=== PATIENT | female | born 1950 | race Caucasian/White ===

== ENCOUNTER → 2018-01-23 15:43 | Outpatient (CLI) | payer MEDICARE, BC, SELFPAY ==
--- NOTE | 2018-01-23 13:40 | EMB_PTH ---
PATIENT: ROMAN VALENZUELA LOC: [facility] U#:[id number] AGE/SX: 75/F ROOM: RE01/23/[address]: Dr. Raza Wynn MD : 1950 BED: DIS: SPEC #: [id number] RECD: 01/23/18 15:35 STATUS: ENRICO YARED #: [id number] SHANNAN: 01/23/18 13:[address]: Raza Wynn DEPT: SURGICAL PATHOLOGY RECD BY: Chester Borges ENTERED: 01/24/18 07:49 SP TYPE: ENDOM BX/C MAT DR: No Primary Care Phys Tissues: Endometrium, NOS Procedures: Surgery Specimen Level IV HEADER OPERATION: Endometrial biopsy PRE-OP DIAGNOSIS: Postmenopausal bleeding TISSUE SUBMITTED: Endometrial biopsy MICROSCOPIC DIAGNOSIS Endometrial biopsy: Focal simple cystic hyperplasia without atypia. SJ:parker 01/25/18 MICROSCOPIC DESCRIPTION Slides are reviewed. GROSS DESCRIPTION Received in fixative is one container labeled with the patient's name and designated EM biopsy. The specimen consists of multiple fragments of hemorrhagic soft tissue that in aggregate measure 2.5 x 2.5 x 0.1 cm. The specimen is totally submitted in one cassette. / SJ:parker 01/24/18 TC:5 CPT: 27824
[2018-01-28 14:09] LABS: HPV Reflexed? NOT INDICATED
== END ==
PROVIDERS: Visit Provider Obstetrics & Gynecology
DX: Z12.4 Encounter for screening for malignant neoplasm of cervix (principal); N95.0 Postmenopausal bleeding
CPT/HCPCS: 88175; 88305; G0145

== ENCOUNTER 2018-06-03 05:36 | Day surgery (SDC) | payer MEDICARE, BC, SELFPAY ==
[2018-05-29 09:51] LABS: Hematocrit 45.2 % (37-47); Hemoglobin 14.2 g/dl (12.0-15.0); Mean Corp Hgb Conc 31.4 g/gl (32-36); Mean Corpuscular Hgb 28.5 pg (27.0-32.0); Mean Corpuscular Volume 90.8 fL (81-99); Mean Platelet Vol. 10.6 fl (6.2-12.0); Platelet Count 300 K/mm3 (150-450); RBC Distribution Width CV 15.3 % (11.6-14.6); Red Blood Count 4.98 M/mm3 (4.2-5.4); White Blood Count 4.1 K/mm3 (4.4-11.0)
[2018-05-29 09:55] LABS: Prothrombin Time (Protime)PT. 12.7 SECONDS (11.7-14.9)
[2018-05-29 09:56] LABS: Partial Thromboplast Time 28.3 Seconds (24.1-36.2); Scan Indicated on CBC? Y/N NO
[2018-05-29 10:09] LABS: ALB/GLOB Ratio 0.9 RATIO (0.9-2.4); AST(SGOT) 20 U/L (15-37); Alanine Aminotransfer ALT/SGPT 22 U/L (13-56); Albumin, Serum 3.6 g/dL (3.2-5.0); Alkaline Phosphatase 86 U/L (45-117); Anion Gap 8 (5-15); BUN 16 mg/dL (7-18); BUN/Creat Ratio 22.1 RATIO (10-20); Calcium,Total 8.8 mg/dL (8.5-10.1); Chloride 106 mmol/L (98-107); Creatinine, Serum 0.72 mg/dL (0.55-1.02); EST Glomerular Filtration Rate 86 mL/min (>60); Est Glom Filt Rate - Afr Amer 104 mL/min (>60); Globulin 3.9 g/dL (2.2-4.2); Glucose 86 mg/dL (74-106); Potassium 3.8 mmol/L (3.5-5.1); Protein, Total 7.5 g/dL (6.4-8.2); Sodium Level 142 mmol/L (136-145)
--- NOTE | 2018-06-02 15:54 | PCM.HP.BLA ---
History and Physical Date of Admission: 06/03/18 Surgical History and Physical Jennifer Sanchez, a 68 year old female 2 0 0 0 2, presents for [facility] on June 03, 2018 at 7:30. -- CASUALTY CLAIM ADJUSTER Bleeding; Simple EM Hyperplasia -- Postmenopausal bleeding which began November 2017. Jennifer claims it started sudden and has been present 1-2 months. It occurs no bleeding x1mo. It is located in the vagina.Jennifer characterizes the quality mild cramping. Severity is Subsided; Associated signs and symptoms are patient states that she lifts at work. Additional comments are: No vag bleeding noted for the past mo. EMBx shows simple EM hyperplasia. MEDICATIONS HISTORY: ALLERGIES: Bactrim, Rash Infections - Chicken pox Illnesses - none Accidents - None Hospitalizations - Childbirth and see surgery last pap unsure; Review of Systems: GENERAL - Denies fever, or chills SKIN - Denies skin changes EYES - Denies visual changes EARS - Denies difficulty hearing NOSE - Denies nasal congestion or bleeding MOUTH - Denies sore throat or difficulty swallowing NECK - Denies pain or swelling RESPIRATORY - Denies shortness of breath or wheezing CARDIOVASCULAR - Denies palpitations or chest pain GASTROINTESTINAL - Denies nausea, vomiting, diarrhea, constipation GENITOURINARY - Denies dysuria, frequency of urination, incontinence of urine MUSCULOSKELETAL - Denies joint or muscle pain NEUROLOGICAL - Denies localized numbness or weakness PSYCHIATRIC - Denies depression or anxiety ENDOCRINE - Denies heat or cold intolerance, weight loss or gain HEMATO-IMMUNOLOGIC - Denies excesive bleeding with cuts SOCIAL HISTORY: Alcohol Use - RARELY Smoking - denies smoking Diet - no special diet Lifestyle - Exercise - active Seat Belt Use - always Employer - [employer] Illicit Drug Use - denies use of street drugs Sexual Activity - Residence - owns Spouse-Sig Other Name - Shoaib Spouse-Sig Other Occupation - Taxi Control - postmenopausal FAMILY HISTORY: NC MENSTRUAL HISTORY: LMP Known?- Postmenopausal PAST PREGNANCIES: Total Pregnancies - 2; Full Term Pregnancies - 2; Premature - 0; Abortions, Induced - 0; Abortions, Spontaneous - 0; Ectopics - 0; Multiple Births - 0; Living Children - 2 SURGICAL HISTORY: 1. none PHYSICAL EXAM BP- 140/82 Sitting, Right arm, regular cuff Weight- 177.25077 lbs Height- 62.5 inch BMI:31.92 CONSTITUTIONAL - NAD, well nourished, and well developed SKIN - No rash, lesions, or ulcers HEENT - Normocephalic, PERRLA, EOMI NECK - No nodes, no nuchal rigidity and thyroid normal size and texture LYMPH NODES - Palpation of lymph nodes in neck and groins within normal limits LUNGS - CTA x2 without wheezes, crackles or rales CARDIAC - Regular rate and rhythm without rubs, murmurs, or gallops BREAST - No dominant masses, no tenderness, no axillary adenopathy, no nipple discharge, no skin changes ABDOMEN - Without hepatosplenomegaly, distention, masses, rebound, or guarding; normal bowel sounds; no hernias EXTREMITIES - No edema or calf tenderness NEUROLOGICAL - Cranial nerves II-XII grossly intact PSYCHIATRIC - A and O to time, place, person, mood and affect External Genitial Vagina - non-tender without lesions Urethra/Urethral Meatus - non-tender Bladder - non-tender Vagina - vaginal bhatti are pink and moist without loss of rugae and no evidence of atropy Cervix - without cervical motion tenderness and has normal size and features without evident lesions Uterus - multiparous size 6 cm & wt 75-125 g Adnexa - clear without massess or tenderness ASSESSMENT/PLAN: 1. Postmenopausal Bleeding and Simple Endometrial Hyperplasia Without Atypia Reviewed EMBx and treatment options. 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 Pt desires surgery. Discussed RBAs and all questions answered.
[2018-06-03] VITALS (14 sets, daily range): BP systolic 87–129; BP diastolic 41–67; PULSE 47–86; RESP 14–18; TEMP 36.4–37.3; O2SAT 93–97; BMI 28.3; BMI 28.2
--- NOTE | 2018-06-03 07:30 | HYST_PTH ---
PATIENT: ROMAN VALENZUELA LOC: [facility] U#:[id number] AGE/SX: 68/F ROOM: RE06/03/[address]: Dr. Raza Wynn MD : 1950 BED: DIS: 06/04/2018 SPEC #: [id number] RECD: 06/03/18 14:50 STATUS: ENRICO YARED #: [id number] SHANNAN: 06/03/18 07:[address]: Raza Wynn DEPT: SURGICAL PATHOLOGY RECD BY: Chester Borges ENTERED: 06/04/18 04:32 SP TYPE: HYSTERECT OTHR DR: Dr. Dillan Hall DO Tissues: Uterus, NOS Procedures: Surgery Specimen Level V HEADER OPERATION: Hysterectomy, lap assisted vaginal, BSO PRE-OP DIAGNOSIS: Postmenopausal bleeding, simple endometrial hyperplasia without atypia TISSUE SUBMITTED: Uterus, bilateral ovaries and fallopian tubes MICROSCOPIC DIAGNOSIS Uterus, bilateral ovaries and fallopian tubes, vaginal hysterectomy and bilateral salpingo-oophorectomy: Cervix - no pathologic diagnosis. Endometrium ? focal simple hyperplasia without atypia. Endometrial polyp ? simple cystic hyperplasia without atypia. Myometrium - no pathologic diagnosis. Bilateral fallopian tubes - no pathologic diagnosis. Right ovary ? mesothelial inclusion cyst with focal calcification. Left ovary ? simple serous cyst (1.5 cm in greatest dimension). SJ:rg 06/04/18 COMMENT Please make reference to previous specimen ([id number]) focal simple cystic hyperplasia without atypia. MICROSCOPIC DESCRIPTION Slides are reviewed. GROSS DESCRIPTION Received in fixative is one container labeled with the patient's name and designated uterus, bilateral ovaries and bilateral fallopian tubes. The specimen consists of a hysterectomy specimen consisting of uterus, bilateral ovaries and fallopian tubes. The uterus with cervix weighs 85 gm and measures 10 x 6 x 4.5 cm. The serosal surface is naqvi, glistening. The ectocervical mucosa is focally eroded. The endocervical canal measures 3 cm in length and the endocervical mucosa is naqvi, glistening without any mass lesion. The saucer-shaped endometrial cavity measures 6 cm in length and up to 4.5 cm in width. The endometrial tissue reveals a polypoid, pink, congested mass in the anterior uterine wall close to the fundus measuring 6.5 x 4 x 3.5 cm. The myometrial wall underneath the polyp is not indurated. Sections of the polyp reveal naqvi-pink cut surfaces. The rest of the endometrium is naqvi, glistening and measures <0.1 cm in thickness. Sections of the uterine wall do not reveal any mass lesion. The uterine wall measures up to 1 cm in thickness. The right fallopian tube measures 6 cm in length and up to 0.6 cm in diameter. The fimbrial end is identified. No tubo-ovarian adhesions are noted. The right ovary measures 2.5 x 1.5 x 1 cm. Sections of fallopian tube and ovary do not reveal any mass lesion. The left fallopian tube is similar appearance to right and measures 6 cm in length and 0.5 cm in diameter. The left ovary measures 4 x 1 x 1 cm. Sections of the left ovary reveal a cyst filled with clear fluid measuring 1.5 cm in greatest dimension. The cyst wall is smooth without any papillation. Appian Developer sections are submitted in 15 cassettes as follows: 1 - anterior cervix, 2 - posterior cervix, 3-8 ? endometrial polyp (3 & 4 contain the polyp with underlying uterine wall, 9 & 10 ? anterior uterine wall, 11 & 12 - posterior uterine wall, 13 ? right fallopian tube and ovary, 14 ? left fallopian tube and ovary, 15 ? cyst, left ovary. / KIRK:parker 06/03/18 TC:5 CPT: 42721
--- NOTE | 2018-06-03 07:46 | OP.PCM_ITS ---
Operative Report Date of Procedure: 06/03/18 Surgeon: Raza Wynn MD, FACOG Professor Of Exercise Science: MAJO Mahoney Anesthesia: Addis Jones CRNA, Zander Valle MD Type of anesthesia: General endotracheal Procedure: Laparoscopic-Assisted Vaginal Hysterectomy and Bilateral Salpingoophrectomy Findings: 8-10 cm uterus with normal-appearing fallopian tubes and ovaries. Normal pelvis. Preoperative diagnosis: Simple Endometrial Hyperplasia Postoperative diagnosis: Simple Endometrial Hyperplasia Indications: This is a 68-year-old who is been having problems with postmenopausal bleeding and simple endometrial hyperplasia. Conservative measures have been declined. Given this the patient desires that we proceed the above procedure. She has been counseled regarding the risk and indications of this procedure including the possibility of bleeding, infection, and injury to surrounding structures such as bowel bladder. All questions were answered. Procedure: Patient was taken to the operating room where after induction of general anesthesia she was placed in the dorsal lithotomy position and prepped and draped in the usual sterile fashion. A Moser catheter was placed. Anterior cervix was grasped with a tenaculum and anterior cervix circumscribed with cautery on a setting of 35 W coagulation. Anterior vaginal mucosa was undermined and a 4 x 4 raytec sponge was placed to identify the peritoneal reflection of the bladder intraperitoneally. Conn cannula was placed and attention was turned towards the laparoscopic portion of the procedure. Approximately 20 cc of half percent ropivacaine was injected subumbilically, suprapubically, and midway between. A 5 mm bladeless trocar was introduced subumbilically and intraperitoneal placement confirmed. CO2 insufflation was completed and, under direct visualization, a 5 mm bladeless trocar was introduced suprapubically. A 5 mm bladeless trocar was introduced midway between these 2 ports. Enseal was used to cauterize the infundibulopelvic ligaments to the level of the round ligament and the Raytec placed in the vagina was visualized. Scissors was used to open the peritoneum and under direct visualization a narrow Beecher was placed vaginally; CO2 gas was stopped and attention turned toward the vaginal hysterectomy portion of the procedure. The posterior aspect of the cervix was circumscribed with a knife and posterior peritoneum easily entered. Progressive bites were taken on either side of the uterine cervix and each pedicle ligated with 0 Vicryl suture. Superior pedicles were ligated ?2 with 0 Vicryl suture and sidewall pedicles were examined and oversewn where necessary with [id number] 0 Vicryl suture to achieve hemostasis. Posterior vaginal cuff was oversewn with running locked 0 Vicryl suture. Hemostasis was noted and peritoneum was closed in a pursestring fashion incorporating superior pedicles into the stitch. Vaginal cuff was then closed front to back with interrupted [id number] 0 Vicryl suture. Hemostasis was noted. Attention was turned toward the laparoscopic portion of the procedure. CO2 insufflation was completed and pedicles were examined and noted to be hemostatic. Right ureter was visualized and noted to peristalse. Laparoscopic instruments with as much CO2 gas as possible was removed and skin incisions were closed with interrupted 4-0 Monocryl suture. Steri-Strips and OpSite were placed across the incisions. Patient tolerated the procedure well was taken to recovery room in satisfactory condition; sponge instrument and needle counts were all reportedly correct. Estimated blood loss for the case was less than 100. Cefotan 2 g IV was given prior to beginning the operative procedure. There were no apparent complications of the surgery. Specimen to pathology was uterus and bilateral fallopian tubes and ovaries.
--- NOTE | 2018-06-03 07:46 | PCM.DC.VHY ---
Discharge Diet: No Restrictions Discharge Activity: Return to Normal Activity, May Not Drive - while taking narcotic pain medications., May Shower, May Take a Tub Bath May resume sexual activity in: 6-8 weeks Call your doctor if your incision/area has: Continuous Slow Oozing, Sudden Increased Bleeding, Increased Pain/ Swelling, Increased Redness, Foul Smelling Discharge Call your doctor if you observe: Fever of 101 or Higher, Inability to urinate, Inability to have a bowel movement, Using more than one pad per hour Allergies/Adverse Reactions: Allergies No Known Allergies Allergy (Verified 06/03/18 06:07) Medications to take at Discharge Docusate Sodium [Colace] 100 mg PO BID PRN PRN #60 cap 06/03/18 Oxycodone [Oxyir] 5 mg PO Q6H PRN PRN 7 Days #20 tab 06/03/18 The following prescriptions were given: Oxycodone [Oxyir] 5 mg PO Q6H PRN PRN 7 Days #20 tab PRN Reason: Severe Pain () Docusate Sodium [Colace] 100 mg PO BID PRN PRN #60 cap PRN Reason: Constipation Primary Care Physician: Dillan Hall DO [Primary Care Provider] - Test Results: Test results from this visit will be discussed in further detail at your follow-up appointment, if applicable. Please Follow Up With: Raza Wynn MD When: 2-3 weeks
[2018-06-03] MEDS: Lubricating Jelly 60 GM Tube 30 GM TOPICAL (07:54)
[2018-06-03] MEDS: Ropivacaine 0.5% 30 ML Vial (08:50)
[2018-06-03] MEDS: oxyCODONE 5 MG Tablet PO (11:42)
[2018-06-03] MEDS: Ketorolac 15 MG/ML Vial IV ×2 (15:47→22:08)
[2018-06-03] MEDS: Dextrose 5%-Lactated Ringers 1,000 ML 150 ML IV (18:34)
[2018-06-03] MEDS: Enoxaparin 30 MG/0.3 ML Syringe SC (18:35)
[2018-06-03] MEDS: Famotidine 20 MG Tablet PO (19:43)
[2018-06-04] MEDS: Dextrose 5%-Lactated Ringers 1,000 ML 150 ML IV (01:48)
[2018-06-04 03:38] VITALS: BP 105/47; PULSE 65; RESP 16; TEMP 36.8; O2SAT 95
[2018-06-04] MEDS: Ketorolac 15 MG/ML Vial IV (03:43)
[2018-06-04 05:18] LABS: Hematocrit 36.2 % (37-47); Hemoglobin 11.3 g/dl (12.0-15.0); Mean Corp Hgb Conc 31.2 g/gl (32-36); Mean Corpuscular Hgb 28.5 pg (27.0-32.0); Mean Corpuscular Volume 91.4 fL (81-99); Mean Platelet Vol. 10.3 fl (6.2-12.0); Platelet Count 241 K/mm3 (150-450); RBC Distribution Width CV 15.3 % (11.6-14.6); RBC Distribution Width SD 50.3 fl (35.1-43.9); Red Blood Count 3.96 M/mm3 (4.2-5.4); White Blood Count 8.4 K/mm3 (4.4-11.0)
[2018-06-04 05:22] LABS: Scan Indicated on CBC? Y/N NO
[2018-06-04 05:37] LABS: Creatinine, Serum 0.71 mg/dL (0.55-1.02); EST Glomerular Filtration Rate 88 mL/min (>60); Est Glom Filt Rate - Afr Amer 107 mL/min (>60); Estimated Creatinine Clearance 51.81 ml/min
[2018-06-04 07:50] VITALS: BP 120/58; PULSE 55; RESP 16; TEMP 36.6; O2SAT 99
--- NOTE | 2018-06-04 08:40 | PCM.PN.OB ---
Subjective: Patient without complaints. Tolerating diet well. Positive flatus. Ready to go home. - Physical Exam Vital Signs AF, VSS Temp Pulse Resp BP Pulse Ox 97.9 F 55 L 16 120/58 L 99 06/04/18 07:50 06/04/18 07:50 06/04/18 07:50 06/04/18 07:50 06/04/18 07:50 Oxygen Delivery Method Room Air Weight: 175 lb Body Mass Index (BMI) 28.2 Intake and Output for Last 24 Hours 06/02/18 06/03/18 06/04/18 23:59 23:59 23:59 Intake Total 3401 / 3401 1776 / 1776 Output Total 2075 / 2075 1800 / 1800 Balance 1326 / 1326 -24 / -24 Laboratory Tests Past 24 Hrs 06/04/18 06/04/18 04:55 04:55 WBC 8.4 RBC 3.96 L Hgb 11.3 L Hct 36.2 L MCV 91.4 MCH 28.5 MCHC 31.2 L RDW 15.3 H RDW Differential 50.3 H Plt Count 241 MPV 10.3 Creatinine 0.71 Estim Creat Clear Calc 51.81 Est GFR (MDRD) Af Amer 107 Est GFR (MDRD) Non-Af 88 Wound is clean, dry, intact. Good urine output. Hemoglobin and creatinine okay. Minimal vaginal bleeding. Medical Necessity - Tobacco Use Smoking Status: Never smoker Assessment/Plan Doing well status postoperative day #1 LAVH/BSO. Will release to home with routine instructions.
== END 2018-06-04 10:38 | disposition home or self-care (01) ==
LOC: SDC 05:37 → AC 05:38 → ACINP 09:34 → MS2 09:52
PROVIDERS: Family Provider Family Medicine; PCP Family Medicine; Visit Provider Obstetrics & Gynecology
PROC: 0UT9FZZ Resection of Uterus, Via Natural or Artificial Opening With Percutaneous Endoscopic Assistance (ICD-10-PCS; CPT 58552; principal; 2018-06-03 07:05)
DX: N85.01 Benign endometrial hyperplasia (principal); N83.292 Other ovarian cyst, left side; N83.291 Other ovarian cyst, right side; N95.0 Postmenopausal bleeding
CPT/HCPCS: 58552; 36415; 80053; 82565; 85027; 85610; 85730; 86850; 86900; 88307; 93005; J7120; J2405

== ENCOUNTER → 2023-07-09 | Outpatient (CLI) | payer MEDICARE, BC, SELFPAY | END | disposition home or self-care (01) | LOC: LABSPEC 17:19 | PROVIDERS: PCP Family Medicine; Visit Provider Advanced Practice Midwife | DX: N30.90 Cystitis, unspecified without hematuria (principal) | CPT/HCPCS: 87086; 87088 ==

== ENCOUNTER → 2024-08-13 | Outpatient (CLI) | payer MEDICARE, BC, SELFPAY | END | disposition home or self-care (01) | LOC: LABSPEC 15:59 | PROVIDERS: PCP Family Medicine; Referring Provider Physician Assistant; Visit Provider Physician Assistant | DX: N39.0 Urinary tract infection, site not specified (principal) | CPT/HCPCS: 87086; 87088; 87186 ==